=== PATIENT | female | born 1940 | race Caucasian/White ===

== ENCOUNTER → 2017-04-23 | Day surgery (SDC) | payer OTHER ==
[2017-04-01 10:51] VITALS: Ht 170.2 cm; Wt 81.8 kg
[~2017-04-23] VITALS: Ht 170.2 cm; Wt 81.8 kg
[~2017-04-23] MED LIST: 500ML BSS 0.3ML EPI 1:1000PF IRRIG ONE; ACETAMINOPHEN 325 MG TAB PO PRN; ALLO300T2 PO; AMVISC PLUS 0.8ML SYRINGE INT OCU ONE; ATEN-173 PO; ATROPINE SULFATE 0.1 MG/ML 5ML SYR IV PRN; AcetaZOLAMIDE 250 MG TAB PO SCH; BETAXOLOL HCL 0.25% OP SUSP PER DROP CHARGE OPR SCH; BNC40 PO; BRIMONIDINE TART 0.2% OP SOLN PER DROP CHARGE ONE; BSS FLUSH ONE; CLON0.5T3 PO; CMD3 PO; ENDOCOAT 0.85ML SYRINGE INT OCU ONE; EpHEDrine SULFATE INJ 50 MG/ML AMP IV PRN; EpINEphrine INJ 1MG/ML AMP 1 MG/ML AMP ONE; FURO-85 PO; LACTATED RINGER'S 1000ML 500 ML IV SCH; LIDOCAINE 4% OP SOLN DROP CHARGE ONE; LIDOCAINE 4% OP SOLN DROP CHARGE OPR SCH; LIDOCAINE HCL 1% MPF 2 ML VIAL ONE; MIDAZOLAM HCL 1 MG/ML 2ML VIAL ONE; MIX: 4ML BSS 1ML EPI 1:1000 PF INSTIL ONE; MOXIFLOXACIN OPH SOLN PER DROP CHARGE ONE; OCUCOAT 1 ML SOLN IO ONE; OMEG10007 PO; POVIDONE-IODINE OP SOLN 30 ML BTL ONE; PROPARACAINE 0.5% OP SOLN PER DROP CHARGE OPR SCH; SENNTAB23 PO; TOBRAMYCIN/DEXAMETHASONE OPH OINT PER APPLN CHARGE ONE; WARF3TAB6 PO
[2017-04-23] MEDS: PHENYLEPHRINE HCL 2.5% OP SOLN PER DROP CHARGE OPR SCH ×2 (07:25→07:30)
[2017-04-23] MEDS: TROPICAMIDE 1% OP SOLN PER DROP CHARGE OPR SCH ×2 (07:26→07:31)
--- NOTE | 2017-04-23 07:26 | History & Physical Bridge - [place] ---
H&P Re-Evaluation Bridge Note: I have examined the patient, reviewed the History & Physical and in the interval since the performance of the History & Physical I have noted the following changes of clinical significance: No changes noted
[2017-04-23] MEDS: CYCLOPENTOLATE HCL 1% OP SOLN PER DROP CHARGE OPR SCH ×2 (07:27→07:32)
[2017-04-23] MEDS: MOXIFLOXACIN OPH SOLN PER DROP CHARGE OPR SCH ×2 (07:28→07:37)
--- NOTE | 2017-04-23 08:37 | [facility] Operative Report ---
Operative Report Date of Service Apr 23, 2017. Operative Report 1. PREOPERATIVE DIAGNOSIS: Senile nuclear cataract, right eye. 2. POSTOPERATIVE DIAGNOSIS: Senile nuclear cataract, right eye. 3. PROCEDURE: Phacoemulsification of right cataract with posterior chamber lens implant, type B[employer]ch [employer] Lomb, model MI60L, power +18.0 diopters. ANESTHESIA: Local standby. SURGEON: Dr. Lundberg. COMPLICATIONS: None. OPERATING TIME: 10 minutes. 4. OPERATION AND FINDINGS: DESCRIPTION OF PROCEDURE: The right pupil was dilated. The anesthetic was administered using a topical technique. The right eye was prepped and draped. A speculum was placed. A clear corneal incision was formed. The chamber was filled with Amvisc Plus and Endocoat. Epinephrine solution was used. A paracentesis was placed. A capsulorrhexis was performed. The nucleus was hydrodissected. The lens was removed with phacoemulsification. Time was 1.73 seconds. The aspiration unit was used to remove the cortex. The capsule was filled with Amvisc Plus. The lens implant was folded and placed into the capsule. The incision was hydrated. The Amvisc was aspirated. The wound was secure. The chamber was deep. The pupil was round. Brimonidine, TobraDex ointment and Vigamox solution were placed. The speculum was removed. The patient was returned to the Recovery Room in stable condition. I attest to the content of the Intraoperative Record and any orders documented therein. Any exceptions are noted below. The scribe's documentation has been prepared in my presence, under my direction and personally reviewed by me in its entirety. I confirm that the note above accurately reflects all work, treatment, procedures, and medical decision making performed by me. I personally scribed for Jaleel Lundberg M.D. ([email or web address]) on 04/23/17 at 08:37. Electronically submitted by Milena Navarrete ([email or web address]).
--- NOTE | 2017-04-23 08:39 | Discharge Instructions-SurgCtr ---
Discharge Instructions Date of Service Apr 23, 2017. Visit Reason for Visit: Cataract Right Eye Discharge Discharge Diagnosis / Problem: lens implant right eye Discharge Goals Goal(s): Improve function Activity Recommendations Activity Limitations: resume your previous activity Lifting Limitations: no more than 10 pounds Exercise/Sports Limitations: gradually increase as tolerated May Resume Sexual Activity: when tolerated Shower/Bathe: tomorrow Driving or Machine Use: resume 1 day after discharge Anesthesia . Post Anesthesia Instructions: If you have had General Anesthesia or IV Sedation: * Do not drive today. * Resume driving when surgeon permits. * Do not make important decisions or sign legal documents today. * Call surgeon for: 1. Temperature elevations greater than 101 degrees F. 2. Uncontrollable pain. 3. Excessive bleeding. 4. Persistent nausea and vomiting. 5. Medication intolerance (nausea, vomiting or rash). * For nausea and vomiting use only clear liquids such as: tea, soda, bouillon until nausea subsides, then gradually increase diet as tolerated. * If you have any concerns or questions, call your surgeon's office. If physician is unavailable and it is an emergency, call 911 or go to the nearest emergency room. . Instructions / Follow-Up Instructions / Follow-Up ACTIVITY RECOMMENDATIONS: * Light activities. * Mild irritation and blurred vision are common for the first few days. * You may walk outside, read, watch television. * Redness around the white part of the eye is common. MEDICATIONS: Resume previous medications unless instructed otherwise by your surgeon. * Take white Diamox (Acetazolamide) tablet at 1 pm today. Start all eye drops at 1 pm today: * Eye drops (today and tomorrow): Prednisone - one drop in operative eye every 3 hours while awake Ofloxacin - one drop in operative eye every 3 hours while awake SPECIAL CARE INSTRUCTIONS: * Tape plastic shield over eye to sleep at night. Call your doctor at with any concerns or problems. FOLLOW UP VISIT: Follow-up with Dr Lundberg at [facility] as scheduled. Diet Recommendations Home Diet: no limitations Procedures Procedures Performed: Right Cataract Phacoemulsification With Intraocular Lens Implant Pending Studies Studies pending at discharge: no Medical Emergencies . Who to Call and When: Medical Emergencies: If at any time you feel your situation is an emergency, please call 911 immediately. . Non-Emergent Contact Non-Emergency issues call your: [facility] Call Non-Emergent contact if: your pain is not controlled [phone] . . "Provider Documentation" section prepared by Jaleel Lundberg. .
[2017-04-23 08:42] VITALS: TEMP 36.3
--- NOTE | 2017-04-23 09:03 | Anesthesia Progress Nt - [facility] ---
Anesthesia Post Op Note Date & Time Apr 23, 2017 at 09:01 Vital Signs Pain Intensity: 0 Vital Signs Past 12 Hours Date Time Temp Pulse Resp B/P (MAP) Pulse Ox O2 Delivery O2 Flow Rate FiO2 04/23/17 08:42 36.3 71 16 130/78 (95) 96 Room Air 04/23/17 07:16 36.8 78 16 185/80 (115) 97 Room Air Notes Mental Status: alert / awake / arousable, participated in evaluation Pt Amnestic to Procedure: Yes Nausea / Vomiting: adequately controlled Pain: adequately controlled Airway Patency, RR, SpO2: stable & adequate BP & HR: stable & adequate Hydration State: stable & adequate Anesthetic Complications: no major complications apparent
[2017-04-23 09:04] VITALS: BP 121/79; PULSE 64; O2SAT 95
== END | disposition home or self-care (01) ==
LOC: X.SURG 07:02
PROVIDERS: ATTEND Specialist
DX: H25.11 Age-related nuclear cataract, right eye (principal); I10 Essential (primary) hypertension; E11.9 Type 2 diabetes mellitus without complications; M19.90 Unspecified osteoarthritis, unspecified site; M06.9 Rheumatoid arthritis, unspecified; Z79.01 Long term (current) use of anticoagulants

== ENCOUNTER → 2017-05-14 | Day surgery (SDC) | payer OTHER ==
[2017-05-13 13:30] VITALS: Ht 170.2 cm; Wt 81.8 kg
[~2017-05-14] VITALS: Ht 170.2 cm; Wt 81.8 kg
[~2017-05-14] MED LIST changes: +BETAXOLOL HCL 0.25% OP SUSP PER DROP CHARGE OPL SCH; -BETAXOLOL HCL 0.25% OP SUSP PER DROP CHARGE OPR SCH; +FENTANYL CITRATE INJ 50 MCG/1 ML 2 ML VIAL IV PRN; +FLUMAZENIL 0.1 MG/1 ML 10 ML VIAL IV PRN; +HYDROmorphone INJ 2 MG/ML SYR/VIAL IV PRN; +LABETALOL HCL IV 5 MG/ML 20ML IV PRN; +LIDOCAINE 4% OP SOLN DROP CHARGE OPL SCH; -LIDOCAINE 4% OP SOLN DROP CHARGE OPR SCH; +MEPERIDINE HCL 25 MG/ML CARP IV PRN; +NALOXONE HCL 0.4 MG/1 ML VIAL/CARP IV PRN; -OCUCOAT 1 ML SOLN IO ONE; +ONDANSETRON INJ 2 MG/ML 2 ML VIAL IV PRN; +PHENYLEPHRINE 100MCG/ML 5ML SYR IV PRN; +PROPARACAINE 0.5% OP SOLN PER DROP CHARGE OPL SCH; -PROPARACAINE 0.5% OP SOLN PER DROP CHARGE OPR SCH
[2017-05-14] MEDS: PHENYLEPHRINE HCL 2.5% OP SOLN PER DROP CHARGE OPL SCH ×2 (08:54→08:59)
[2017-05-14] MEDS: TROPICAMIDE 1% OP SOLN PER DROP CHARGE OPL SCH ×2 (08:55→09:00)
[2017-05-14] MEDS: CYCLOPENTOLATE HCL 1% OP SOLN PER DROP CHARGE OPL SCH ×2 (08:56→09:01)
[2017-05-14] MEDS: MOXIFLOXACIN OPH SOLN PER DROP CHARGE OPL SCH ×2 (08:57→09:07)
--- NOTE | 2017-05-14 09:41 | [facility] Operative Report ---
Operative Report Date of Service May 14, 2017. Operative Report 1. PREOPERATIVE DIAGNOSIS: Senile nuclear cataract, left eye. 2. POSTOPERATIVE DIAGNOSIS: Senile nuclear cataract, left eye. 3. PROCEDURE: Phacoemulsification of left cataract with posterior chamber lens implant, type Bausch [employer] Lomb, model MI60L, power +18.5 diopters. ANESTHESIA: Local standby. SURGEON: Dr. Lundberg. COMPLICATIONS: None. OPERATING TIME: 10 minutes. 4. OPERATION AND FINDINGS: DESCRIPTION OF PROCEDURE: The left pupil was dilated. The anesthetic was administered using a topical technique. The left eye was prepped and draped. A speculum was placed. A clear corneal incision was formed. The chamber was filled with Amvisc Plus and Endocoat. Epinephrine solution was used. A paracentesis was placed. A capsulorrhexis was performed. The nucleus was hydrodissected. The lens was removed with phacoemulsification. Time was 4.10 seconds. The aspiration unit was used to remove the cortex. The capsule was filled with Amvisc Plus. The lens implant was folded and placed into the capsule. The incision was hydrated. The Amvisc was aspirated. The wound was secure. The chamber was deep. The pupil was round. Brimonidine, TobraDex ointment and Vigamox solution were placed. The speculum was removed. The patient was returned to the Recovery Room in stable condition. I attest to the content of the Intraoperative Record and any orders documented therein. Any exceptions are noted below. The scribe's documentation has been prepared in my presence, under my direction and personally reviewed by me in its entirety. I confirm that the note above accurately reflects all work, treatment, procedures, and medical decision making performed by me. I personally scribed for Jaleel Lundberg M.D. ([email or web address]) on 05/14/17 at 09:41. Electronically submitted by Milena Navarrete ([email or web address]).
--- NOTE | 2017-05-14 09:43 | Discharge Instructions-SurgCtr ---
Discharge Instructions Date of Service May 14, 2017. Visit Reason for Visit: Left Cataract Discharge Discharge Diagnosis / Problem: lens implant left eye Discharge Goals Goal(s): Improve function Activity Recommendations Activity Limitations: resume your previous activity Lifting Limitations: no more than 10 pounds Exercise/Sports Limitations: gradually increase as tolerated May Resume Sexual Activity: when tolerated Shower/Bathe: tomorrow Driving or Machine Use: resume 1 day after discharge Anesthesia . Post Anesthesia Instructions: If you have had General Anesthesia or IV Sedation: * Do not drive today. * Resume driving when surgeon permits. * Do not make important decisions or sign legal documents today. * Call surgeon for: 1. Temperature elevations greater than 101 degrees F. 2. Uncontrollable pain. 3. Excessive bleeding. 4. Persistent nausea and vomiting. 5. Medication intolerance (nausea, vomiting or rash). * For nausea and vomiting use only clear liquids such as: tea, soda, bouillon until nausea subsides, then gradually increase diet as tolerated. * If you have any concerns or questions, call your surgeon's office. If physician is unavailable and it is an emergency, call 911 or go to the nearest emergency room. . Instructions / Follow-Up Instructions / Follow-Up ACTIVITY RECOMMENDATIONS: * Light activities. * Mild irritation and blurred vision are common for the first few days. * You may walk outside, read, watch television. * Redness around the white part of the eye is common. MEDICATIONS: Resume previous medications unless instructed otherwise by your surgeon. * Take white Diamox (Acetazolamide) tablet at 1 pm today. Start all eye drops at 1 pm today: * Eye drops (today and tomorrow): Prednisone - one drop in operative eye every 3 hours while awake Ofloxacin - one drop in operative eye every 3 hours while awake SPECIAL CARE INSTRUCTIONS: * Tape plastic shield over eye to sleep at night. Call your doctor at with any concerns or problems. FOLLOW UP VISIT: Follow-up with Dr Lundberg at [place] office as scheduled. Diet Recommendations Home Diet: no limitations Procedures Procedures Performed: Left Cataract Phacoemulsification With Intraocular Lens Implant Pending Studies Studies pending at discharge: no Medical Emergencies . Who to Call and When: Medical Emergencies: If at any time you feel your situation is an emergency, please call 911 immediately. . Non-Emergent Contact Non-Emergency issues call your: Certified Medical Technician Assistant Call Non-Emergent contact if: your pain is not controlled [phone] . . "Provider Documentation" section prepared by Jaleel Lundberg. .
[2017-05-14 09:45] VITALS: TEMP 36.4
[2017-05-14 10:09] VITALS: BP 129/78; PULSE 63; O2SAT 95
--- NOTE | 2017-05-14 10:14 | Anesthesia Progress Nt - [facility] ---
Anesthesia Post Op Note Date & Time May 14, 2017 at 10:14 Vital Signs Vital Signs Past 12 Hours Date Time Temp Pulse Resp B/P (MAP) Pulse Ox O2 Delivery O2 Flow Rate FiO2 05/14/17 10:09 63 16 129/78 (95) 95 Room Air 05/14/17 09:45 36.4 63 20 122/77 (92) 96 Room Air 05/14/17 08:43 36.4 72 20 182/99 (126) 94 Room Air Notes Mental Status: alert / awake / arousable, participated in evaluation Pt Amnestic to Procedure: Yes Nausea / Vomiting: adequately controlled Pain: adequately controlled Airway Patency, RR, SpO2: stable & adequate BP & HR: stable & adequate Hydration State: stable & adequate Anesthetic Complications: no major complications apparent
== END | disposition home or self-care (01) ==
LOC: X.SURG 08:17
PROVIDERS: ATTEND Specialist
DX: H25.12 Age-related nuclear cataract, left eye (principal); I10 Essential (primary) hypertension; Z79.899 Other long term (current) drug therapy; Z79.01 Long term (current) use of anticoagulants

== ENCOUNTER → 2017-07-03 | Outpatient (CLI) | payer OTHER ==
[~2017-07-03] MED LIST changes: -500ML BSS 0.3ML EPI 1:1000PF IRRIG ONE; -ACETAMINOPHEN 325 MG TAB PO PRN; -AMVISC PLUS 0.8ML SYRINGE INT OCU ONE; -ATROPINE SULFATE 0.1 MG/ML 5ML SYR IV PRN; -AcetaZOLAMIDE 250 MG TAB PO SCH; -BETAXOLOL HCL 0.25% OP SUSP PER DROP CHARGE OPL SCH; -BRIMONIDINE TART 0.2% OP SOLN PER DROP CHARGE ONE; -BSS FLUSH ONE; -ENDOCOAT 0.85ML SYRINGE INT OCU ONE; -EpHEDrine SULFATE INJ 50 MG/ML AMP IV PRN; -EpINEphrine INJ 1MG/ML AMP 1 MG/ML AMP ONE; -FENTANYL CITRATE INJ 50 MCG/1 ML 2 ML VIAL IV PRN; -FLUMAZENIL 0.1 MG/1 ML 10 ML VIAL IV PRN; -HYDROmorphone INJ 2 MG/ML SYR/VIAL IV PRN; -LABETALOL HCL IV 5 MG/ML 20ML IV PRN; -LACTATED RINGER'S 1000ML 500 ML IV SCH; -LIDOCAINE 4% OP SOLN DROP CHARGE ONE; -LIDOCAINE 4% OP SOLN DROP CHARGE OPL SCH; -LIDOCAINE HCL 1% MPF 2 ML VIAL ONE; -MEPERIDINE HCL 25 MG/ML CARP IV PRN; -MIDAZOLAM HCL 1 MG/ML 2ML VIAL ONE; -MIX: 4ML BSS 1ML EPI 1:1000 PF INSTIL ONE; -MOXIFLOXACIN OPH SOLN PER DROP CHARGE ONE; -NALOXONE HCL 0.4 MG/1 ML VIAL/CARP IV PRN; -ONDANSETRON INJ 2 MG/ML 2 ML VIAL IV PRN; -PHENYLEPHRINE 100MCG/ML 5ML SYR IV PRN; -POVIDONE-IODINE OP SOLN 30 ML BTL ONE; -PROPARACAINE 0.5% OP SOLN PER DROP CHARGE OPL SCH; -TOBRAMYCIN/DEXAMETHASONE OPH OINT PER APPLN CHARGE ONE
[2017-07-03 13:41] LABS: HEMOGLOBIN A1C 6.5 % (4.5-5.6)
[2017-07-03 13:57] LABS: ALBUMIN 3.5 gm/dl (3.4-5.0); ALT/SGPT 22 U/L (12-78); AST/SGOT 19 U/L (15-37); BLOOD UREA NITROGEN 34 mg/dl (7-18); CALCIUM 9.2 mg/dl (8.5-10.1); CARBON DIOXIDE 25 mmol/L (21-32); CREATININE 1.27 mg/dl (0.60-1.20); GLUCOSE 122 mg/dl (70-99); POTASSIUM 4.1 mmol/L (3.5-5.1); SODIUM 136 mmol/L (136-145)
[2017-07-03 14:00] LABS: ALKALINE PHOSPHATASE 93 U/L (45-117); CHOLESTEROL 180 mg/dl (0-200); TOTAL PROTEIN 7.2 gm/dl (6.4-8.2); URIC ACID 5.4 mg/dl (2.6-7.2)
== END | disposition home or self-care (01) ==
LOC: C.LABMFLN 09:08
PROVIDERS: ATTEND Family Medicine
DX: E11.9 Type 2 diabetes mellitus without complications (principal); M1A.9XX1 Chronic gout, unspecified, with tophus (tophi); I10 Essential (primary) hypertension